=== PATIENT | female | born 1945 | race Two or more races ===

== ENCOUNTER 2025-08-18 13:00 | Outpatient (RCR) | payer MEDICARE, MEDICAID, SELFPAY ==
--- NOTE | 2025-07-28 10:27 | PT.OIERPT ---
PT OP Initial Eval Patient Information Outpatient Physical Therapy Treatment Date: 07/28/25 Visit Reasons: RT shoulder pain Medical Diagnosis: Right Shoulder Pain; Right Shoulder OA Treatment Dx #1: Right Shoulder Mobility Deficits Treatment Dx #2: Right Shoulder Pain Start of Care: 07/28/25 Date of Onset: 1 year ago Smoking Status Smoking Status: Never smoker Initial Assessment Subjective: Pt is a 79 y/o female reports of chronic right shoulder pain (06/04). Pt denies of trauma or injury to the shoulder. Pt completed xray and MRI but does not know the results. Pt has limitation with overhead motions, lifting, chores, self care, cooking, cleaning, and performing recreational activities. Objective: Right Shoulder PROM: all motions are WFL Right Shoulder AROM Flexion: 90 deg Abduction: 95 deg External Rotation: 80 deg Internal Rotation: 70 deg Right Shoulder MMTs: grossly 3-/5 Right Scapula MMTs: grossly 3-/5 Palpation: TTP supraspinatus tendon Assessment: Pt demonstrate right shoulder pain with mobility deficits consistent with possible rotator cuff involvement leading to difficulty with ADLs. Pt will attempt physical therapy if pain persist Pt will be refer back to provider for further consultation. Short Term and Peer Health Promoter Goals 1) Increase right shoulder AROM WFL in 6 wks to be able to perform overhead motions 2) Decrease shoulder pain to 2/10 in 6 wks to be able to perform chores 3) Increase right shoulder MMTs grossly to 3+/5 in 6 wks to be able to perform self care activities 4) Decrease shoulder pain to 3/10 in 6 wks to be able to sleep more than 6 hrs 5) Indep with HEP Treatment Plan 1) Manual Therapy 2) Therapeutic Activities 3) Therapeutic Exercises 4) Modalities (ice, heat) Frequency and Duration: 2 x wk for 6 wks Certification Dates: 07/28/25 to 10/28/25 Procedure Charges OP PT Eval Mod Complex 30 minutes: Yes
--- NOTE | 2025-08-02 14:25 | PT.ODAYNRPT ---
PT Outpatient Daily Note OP Daily Note Outpatient Physical Therapy Treatment Date: 08/02/25 Visit Reasons: RT shoulder pain Subjective: Pt's shoulder feels about the same. Pt performs exercises a lot of exercises at home. Objective: Please see flow chart for list of ther ex performed Assessment: tolerate exercises with minimal pain; tactile cues to correct scapula pinch exercises Plan: Continue with PT Length of Time (minutes) of Treatment: 30 Minutes Procedure Charges Therapeutic Exercise 30 minutes: Yes
--- NOTE | 2025-08-09 11:43 | PT.ODAYNRPT ---
PT Outpatient Daily Note OP Daily Note Outpatient Physical Therapy Treatment Date: 08/09/25 Visit Reasons: RT shoulder pain Subjective: Pt's shoulder continues to hurt. No change in overall pain. Pt brought in xray and wants to review Objective: Please see flow chart for list of ther ex performed Assessment: patient continues to have pain towards end range in all plane. Pt's xray results review with patient. Pt gave verbal understanding of the results and will perform surgery if indicated in the future. Plan: Continue with PT Length of Time (minutes) of Treatment: 30 Minutes Procedure Charges Therapeutic Exercise 30 minutes: Yes
--- NOTE | 2025-08-11 14:32 | PTNOTE_ITS ---
PT Outpatient Daily Note OP Daily Note Outpatient Physical Therapy Treatment Date: 08/11/25 Visit Reasons: RT shoulder pain Subjective: Pt reports R shoulder is sore and painful when moving it certain movement. Objective: Please see flow sheet for ther ex list. Assessment: Increase pain with AAROM ER, modified reps to accommodate pain. Plan: Continue with POC. Length of Time (minutes) of Treatment: 30 Minutes OFFICE CLIN ASST Service Modifier Method I: Divide the number of min of care provided by the OFFICE CLIN ASST/GYPSY by the total min of care provided then multiply by 100. If greater than 11 percent modifier is required. Method II: Divide the total time of care provided to patient by 10 (round to the nearest whole number) and add 1 min. to set the minimum time requirement. If treatment total was 60 min., then 10% of 6 min PT CQ modifier applied: CQ Modifier applied Procedure Charges Therapeutic Exercise 30 minutes: Yes
--- NOTE | 2025-08-16 13:57 | PT.ODAYNRPT ---
PT Outpatient Daily Note OP Daily Note Outpatient Physical Therapy Treatment Date: 08/16/25 Visit Reasons: RT shoulder pain Subjective: Pt notice shoulder ache but really likes the theraband; it works the muscle . Objective: Please see flow chart for list of ther ex performed Assessment: tolerate exercises with minimal pain and require cues to help form with shoulder 3 way to recruit correct muscles Plan: Continue with PT Length of Time (minutes) of Treatment: 30 Minutes Procedure Charges Therapeutic Exercise 30 minutes: Yes
--- NOTE | 2025-08-18 13:41 | PT.ODS1RPT ---
PT OP Progress/Discharge Note Date of Service: 08/18/25 Progress Note/DC Note Progress Note/Discharge Note: DC Note Patient Information Visit Reasons: RT shoulder pain Medical Diagnosis: Right Shoulder Pain Treatment Dx #1: Right Shoulder OA Service Continue Service or Discharge: Discharge Discharge Date: 08/18/25 Status Subjective: Pt's shoulder continues to hurt. No change in overall symptoms and continues to have pain with all ADLs. At this time Pt will like to stop physical therapy and continue exercises at home. Objective: Right Shoulder PROM: all motions are WNL Right Shoulder AROM Flexion: 90 deg Abduction: 95 deg External Rotation: 80 deg Internal Rotation: 70 deg Right Shoulder MMTs: grossly 3-/5 Right Scapula MMTs: grossly 3-/5 Palpation: TTP supraspinatus tendon Assessment: Pt continues to have right shoulder pain with weakness leading to difficulty with ADLs. Pt will no longer benefit from physical therapy due to minimal progress towards physical therapy goals. Pt was instructed on HEP last session and educated to continue exercises to maintain overall mobility. Pt performed all exercises safely, thank you for your referrals. Plan: D/C home with HEP and follow up with provider Procedure Charges Therapeutic Exercise 30 minutes: Yes
== END 2025-08-25 23:59 | disposition home or self-care (01) ==
LOC: CPTX 13:00
PROVIDERS: PCP Physician Assistant; Referring Provider Physician Assistant; Visit Provider Physician Assistant
DX: M25.511 Pain in right shoulder (principal); R53.1 Weakness; G89.29 Other chronic pain; M19.011 Primary osteoarthritis, right shoulder
CPT/HCPCS: 97110; 97162